=== PATIENT | male | born 1980 ===

== ENCOUNTER 2020-08-10 17:11 | Outpatient (REF) | payer OTHER, SELFPAY | END 2020-08-10 17:12 | disposition home or self-care (01) | LOC: HO.LAB 17:11 | PROVIDERS: Visit Provider Internal Medicine | DX: Z20.828 Contact with and (suspected) exposure to other viral communicable diseases (principal) | CPT/HCPCS: C9803; U0003 ==

== ENCOUNTER 2020-09-27 12:15 | Outpatient (REF) | payer OTHER, SELFPAY | END 2020-09-27 12:16 | disposition home or self-care (01) | LOC: HO.LAB 12:15 | PROVIDERS: PCP Internal Medicine Geriatric Medicine; Visit Provider Internal Medicine | DX: Z20.822 Contact with and (suspected) exposure to COVID-19 (principal) | CPT/HCPCS: 36415; C9803; U0003; U0005 ==

== ENCOUNTER → 2023-12-02 10:06 | Outpatient (REF) | payer OTHER, SELFPAY ==
--- NOTE | 2023-12-02 10:14 | HM_ITS ---
* Total monitoring time 2 days. * Underlying rhythm is sinus with an average rate of 67/Min. * Very rare supraventricular and ventricular ectopy. * No significant pauses or AV blocks. * No patient markers or diary events. MTDD
== END ==
LOC: HO.CARD 10:06
PROVIDERS: Visit Provider Nurse Practitioner Primary Care
DX: R00.2 Palpitations (principal)
CPT/HCPCS: 93225

== ENCOUNTER → 2023-12-02 10:14 | Outpatient (BNV) | payer OTHER, SELFPAY | PROVIDERS: Visit Provider Internal Medicine | DX: R00.1 Bradycardia, unspecified (principal) | CPT/HCPCS: 93227 ==

== ENCOUNTER 2023-12-04 10:30 | Outpatient (REF) | payer OTHER, SELFPAY ==
--- NOTE | ~2023-12-04 | XR_ITS ---
EXAMINATION: XR KNEE, RIGHT CLINICAL INFORMATION: Chronic pain of right knee for one year. COMPARISON: None available. TECHNIQUE: AP and 2 lateral views of the right knee. FINDINGS: Dmbttgmn-ee-prnrx joint effusion. Minimal narrowing of the lateral compartment with tiny marginal osteophytes. Bone mineralization is normal. XR/XR knee RT 2V IMPRESSION: Oqsrakue-qn-gvotk joint effusion. Minimal degenerative changes.
== END 2023-12-04 10:31 | disposition home or self-care (01) ==
LOC: HO.HHCX 10:30
PROVIDERS: Visit Provider Nurse Practitioner Primary Care
DX: M25.561 Pain in right knee (principal); G89.29 Other chronic pain
CPT/HCPCS: 73560

== ENCOUNTER 2023-12-31 07:58 | Outpatient (AMB) | payer OTHER, SELFPAY ==
--- NOTE | 2023-12-31 08:01 | A.OFFVIS_ITS ---
Vital Signs 12/31/23 08:10 Height 5 ft 6 in Weight 176 lb BMI 28.4 Intake Visit Reasons: effusion of right knee. Intake Note: Vin is a 43 year old male who presents as new patient with complaints of progressively worsening right knee pain and giving way. The patient describes his pain as sharp in nature. Most of the pain is along the medial aspect of his knee. The patient states that he did injure his right knee approximately 1 year ago. Since that time his symptoms have gotten worse. He has failed the last 6 weeks of conservative treatment. Has done physical therapy exercises which aggravated his pain. He has also tried Tylenol and Advil which gave him minimal relief. He states that his right knee will give out several times per day. 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[employer], Right hand dominant Physical Exam Vital Signs: BMI result Body Mass Index 28.4 Const Other: Well-nourished well-developed very friendly male awake alert and oriented x3 in no acute distress Extrem Other: Bilateral lower extremity examination shows good capillary refill, no skin lesions noted, normal sensation light touch Right knee examination shows a minimal effusion, minimal crepitus with range of motion, tenderness along his medial joint line, positive Chuck's test no instability Results Reviewed Results Reviewed: Standing full weight-bearing x-rays of the patient's right knee show minimal joint space narrowing, no acute bony abnormalities Assessment & Plan Assessment & Plan (1) Right knee pain: Code(s): M25.561 - Pain in right knee Category: Medical Plan Mr. Ugalde presents with right knee pain and mechanical symptoms most likely due to a tear of his medial. Thus, I will send the patient for an MRI of his right knee for further evaluation. I will see him back once the MRI is completed to findings treatment options. Feel free to call me at any time should questions regarding his orthopedic management arise. Thank you very much for asking me to see this very friendly gentleman. I spent 20 minutes in reviewing the patient's records and imaging studies, seeing the patient and documenting in the medical record. Orders: Orders MR knee RT wo con Today M25.561 - Pain in right knee Coding Level of Care Code New Pt Level 3 (55997) Diagnoses Right knee pain M25.561
[2023-12-31 08:10] VITALS: BMI 28.4
== END 2023-12-31 08:19 | disposition home or self-care (01) ==
PROVIDERS: PCP Internal Medicine Geriatric Medicine; Visit Provider Orthopaedic Surgery
DX: M25.561 Pain in right knee (principal)
CPT/HCPCS: 99203

== ENCOUNTER → 2023-12-31 07:58 | Outpatient (BNVA) | payer OTHER, SELFPAY | PROVIDERS: PCP Internal Medicine Geriatric Medicine; Visit Provider Orthopaedic Surgery | DX: M25.561 Pain in right knee (principal) | CPT/HCPCS: 99202 ==

== ENCOUNTER 2024-01-28 09:36 | Outpatient (AMB) | payer OTHER, SELFPAY ==
--- NOTE | 2024-01-28 09:36 | MHC.OFFVIS ---
Vital Signs 01/28/24 09:41 Height 5 ft 6 in Weight 176 lb BMI 28.4 Intake Visit Reasons: OV-effusion of right knee, MRI review Intake Note: Vin is a 43 year old male who presents today with complaints of intermittent discomfort in his right knee. Most of the discomfort is along medial and anterior aspects of his knee. He denies any locking or giving way. Has tried Tylenol and anti-inflammatory medicines which gave him mild relief. 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[employer], Right hand dominant Physical Exam Vital Signs: BMI result Body Mass Index 28.4 Const Other: Well-nourished well-developed very friendly male awake alert and oriented x3 in no acute distress Extrem Other: Bilateral lower extremity examination shows good capillary refill, no skin lesions noted, normal sensation light touch Right knee examination shows a minimal effusion, minimal crepitus with range of motion, no medial or lateral joint line tenderness, no instability Results Reviewed Results Reviewed: MRI of the patient's right knee shows minimal diffuse degenerative changes, no evidence of meniscus tearing Assessment & Plan Assessment & Plan (1) Right knee pain: Code(s): M25.561 - Pain in right knee Category: Medical Plan Mr. 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 I had a lengthy discussion with the patient regarding the treatment options. This point the patient's symptoms are tolerable to him. We will hold off on an injection. He will follow up with me on an as-needed basis should his symptoms worsen in any way. Feel free to call me at any time should questions regarding his orthopedic management arise. I spent 21 minutes in reviewing the patient's records and imaging studies, seeing the patient and documenting in the medical record. Coding Level of Care Code Est Pt Level 2 (06396) Diagnoses Right knee pain M25.561
[2024-01-28 09:41] VITALS: BMI 28.4
== END 2024-01-28 09:57 | disposition home or self-care (01) ==
PROVIDERS: PCP Internal Medicine Geriatric Medicine; Visit Provider Orthopaedic Surgery
DX: M25.561 Pain in right knee (principal)
CPT/HCPCS: 99213

== ENCOUNTER → 2024-01-28 09:36 | Outpatient (BNVA) | payer OTHER, SELFPAY | PROVIDERS: PCP Internal Medicine Geriatric Medicine; Visit Provider Orthopaedic Surgery | DX: M17.11 Unilateral primary osteoarthritis, right knee (principal); M67.51 Plica syndrome, right knee | CPT/HCPCS: 99212 ==

== ENCOUNTER 2024-06-12 14:10 | Outpatient (REF) | payer OTHER, SELFPAY ==
[2024-06-12 16:36] LABS: MANUAL DIFF FLAG NO
[2024-06-12 16:50] LABS: Basophils Percent Auto 0.4 % (0-2); Eosinophils Absolute Auto 0.1 X10*3/uL (0.0-0.4); Eosinophils Percent Auto 1.3 % (0-4); Hematocrit 47.1 % (42.0-52.0); Hemoglobin 16.8 g/dl (14.0-18.0); Imm Gran Abs Auto 0.01 X10*3/uL (0.00-0.03); Imm Gran Pct Auto 0.2 % (0.0-0.4); Lymphocytes Absolute Auto 1.5 X10*3/uL (1.2-4.9); Lymphocytes Percent Auto 30.7 % (20-40); Mean Corpuscular HGB Conc 35.7 g/dl (31.0-36.0); Mean Corpuscular Hemoglobin 32.9 pg (27.0-33.0); Mean Corpuscular Volume 92.4 fL (80.0-98.0); Mean Platelet Volume 11.2 fL (9.4-12.4); Monocytes Absolute Auto 0.4 X10*3/uL (0.1-1.2); Monocytes Percent Auto 8.2 % (2-11); Neutrophils Absolute Auto 2.8 x10*3/uL (2.0-8.3); Neutrophils Percent Auto 59.2 % (45-73); Platelet Count 193 X10*3/uL (160-400); Red Cell Distribution Width 11.9 % (11.0-16.0); White Blood Count 4.8 X10*3/uL (4.8-10.8)
[2024-06-12 16:55] LABS: Estimated Average Glucose 100 mg/dL; Hemoglobin A1C 141.2445 umol/L; Hemoglobin A1c % 5.1 % (<6.0); Total Hemoglobin (HGBA1C) 4362.6824 umol/L
[2024-06-12 17:04] LABS: Alanine Aminotransferase 29 U/L (0-40); Albumin Level 4.3 g/dL (3.5-5.0); Alkaline Phosphatase 116 U/L (39-117); Anion Gap 14 (12-20); Aspartate Amino Transferase 30 U/L (5-37); Bilirubin Total 1.1 mg/dL (0.0-1.0); Blood Urea Nitrogen 11 mg/dL (9-16); Calcium 9.7 mg/dL (8.4-10.2); Carbon Dioxide 22 mmol/L (22-29); Chloride 109 mmol/L (96-108); Cholesterol 128 mg/dL (<200); Estimated Glomerular Filt Rate > 60; Glucose Random 144 mg/dL (60-115); HDL Cholesterol 36 mg/dL (>40); LDL Cholesterol Calculated 78 mg/dL (<100); Potassium 3.9 mmol/L (3.3-5.1); Sodium 141 mmol/L (135-145); Total Protein 7.6 g/dL (6.5-8.0); Triglycerides 74 mg/dL (<150)
[2024-06-12 17:21] LABS: Vitamin B12 415 pg/mL (200-900)
== END 2024-06-12 14:11 | disposition home or self-care (01) ==
LOC: HO.HHCL 14:10
PROVIDERS: Visit Provider Nurse Practitioner Primary Care
DX: K76.0 Fatty (change of) liver, not elsewhere classified (principal); M79.605 Pain in left leg; M79.604 Pain in right leg; R00.2 Palpitations
CPT/HCPCS: 36415; 80053; 80061; 82607; 83036; 84443; 85025

== ENCOUNTER 2025-08-02 13:43 | Outpatient (REF) | payer OTHER, SELFPAY ==
[2025-08-02 16:01] LABS: MANUAL DIFF FLAG NO
[2025-08-02 16:07] LABS: Hematocrit 49.8 % (42.0-52.0); Hemoglobin 17.3 g/dl (14.0-18.0); Imm Gran Abs Auto 0.01 X10*3/uL (0.00-0.03); Imm Gran Pct Auto 0.2 % (0.0-0.4); Lymphocytes Absolute Auto 1.7 X10*3/uL (1.2-4.9); Mean Corpuscular HGB Conc 34.7 g/dl (31.0-36.0); Mean Corpuscular Hemoglobin 32.9 pg (27.0-33.0); Mean Corpuscular Volume 94.7 fL (80.0-98.0); NRBC Abs Auto 0.000 X10*3/uL (0.0-0.012); NRBC Pct Auto 0.0 /100WBC (0.0-0.2); Platelet Count 197 X10*3/uL (160-400); Red Blood Count 5.26 X10*6/uL (4.60-5.80); White Blood Count 5.9 X10*3/uL (4.8-10.8)
[2025-08-02 16:21] LABS: Alanine Aminotransferase 28 U/L (0-40); Albumin Level 4.5 g/dL (3.5-5.0); Alkaline Phosphatase 133 U/L (39-117); Anion Gap 10 (12-20); Aspartate Amino Transferase 34 U/L (5-37); Blood Urea Nitrogen 12 mg/dL (9-16); Calcium 9.3 mg/dL (8.4-10.2); Carbon Dioxide 26 mmol/L (22-29); Chloride 108 mmol/L (96-108); Cholesterol 132 mg/dL (<200); Estimated Glomerular Filt Rate > 60; HDL Cholesterol 33 mg/dL (>40); Potassium 4.1 mmol/L (3.3-5.1); Sodium 140 mmol/L (135-145); Total Protein 7.4 g/dL (6.5-8.0); Triglycerides 110 mg/dL (<150)
--- OUTSIDE RECORDS SUMMARY | 2025-08-02 17:08 | XMS_ITS | Clinical Summary ---
Author Organization [employer] Address [address] [facility] [address] [place] [address] Care Team Providers Care Color Straining Bag Washer Name Role Phone Marsha Almaraz Primary Care Provider [phone] Allergies No known active allergies Medications famotidine (Pepcid) 20 MG tabletIndicatio ns:Heartburn Take 1 tablet as needed up to BID for gastritis 60 tablet 1 5 Active Diclofenac Sodium (Voltaren) 1 % gelIndications: Chronic pain of right knee,Effusion of right knee Apply up to 4x/d to affected joint(s) for pain/swelling 100 g 2 08/02/2025 1:45 PM EST 5 Active Active Problems Problem Noted Date Diagnosed Date Effusion of right knee 12/10/2023 Overview (12/10/2023): On XR 11/2023. Referred to ortho 12/10/23. Migraine 04/08/2018 Overweight 04/08/2018 Reduced libido 04/08/2018 Episodic cluster headache 10/19/2016 Benign paroxysmal positional vertigo 06/22/2016 Encounters Date Type Department Care Team Description 07/27/2025 9:45 AM EST Office Visit [facility] [address] [place] [address] Marsha Almaraz ANP Healthcare maintenance (Primary Dx); Elevated fasting glucose; Dietary counseling; Exercise counseling; Chronic pain of right knee; Effusion of right knee; Decreased libido; Acute right-sided low back pain without sciatica 07/27/2025 Travel 07/26/2025 Telephone [facility] [address] [place] [address] Marsha Almaraz ANP chart prep 07/16/2025 Patient Outreach [facility] [place] [address] Marsha Almaraz ANP Pre-visit Planning ([facility] screening was completed on 05/18/2025) 06/23/2025 Telephone [facility] [place] [address] Marsha Almaraz ANP Nurse Triage 05/18/2025 9:30 AM EDT Office Visit [address] [address] Marsha Almaraz ANP Chronic pain of right knee (Primary Dx); Dizziness; Heartburn 05/18/2025 Travel 05/17/[address] [address] Marsha Almaraz ANP chart prep 05/13/[address] [address] Marsha Almaraz ANP dec recall from Last 3 Months Immunizations Immunization Administration Dates Next Due Influenza injectable quadriv alent IIV4 with preservative 04/29/2019,06/22/2016 Moderna Covid-19 Vaccine 12+ 08/15/2021,12/22/19 21,11/23/2020 Tdap 04/29/2019 Social History Tobacco Use Types Packs/Day Years Used Date Smoking Tobacco: Never Passive Smoke Exposure: Never Smokeless Tobacco: Never Tobacco Cessation:Counseling Given: Not Answered Alcohol Use Standard Drinks/Week Comments Never 0 (1 standard drink = 0.6 oz pur e alcohol) Depression Answer Date Recorded Patient Health Questionnaire-9 Score 0 07/27/2025 Patient Health Questionnaire-9 Score 0 07/27/2025 Last PHQ-9: Questionnaire Data Not on file 1 09/27/2024 Housing Stability Answer Date Recorded What is your housing situation today? I have lois godinez 05/18/[address] you li ve. Do you have problems with any of the following? None of the above 05/18/2025 Food Insecurity Answer Date Recorded Within the past 12 months, y ou worried that your food would run out before you got money to buy more: Never True 05/18/2025 Within the past 12 months,th e food you bought just didn't last and you didn't have enough money to get more: Never True 02/2025 Transportation Answer Date Recorded In the past 12 months, has l ack of transportation kept you from medical appts, meetings, work or from getting things needed for daily living? No 05/18/2025 Utilities Answer Date Recorded In the past 12 months, has t he electric, gas, oil or water company threatened to shut off services in your home? No 05/18/2025 Depression Answer Date Recorded Patient Health Questionnaire-2 Score 0 07/27/2025 Internet Access Answer Date Recorded Internet Access Q1 Yes 07/15/2024 Internet Access Q2 Not on file 07/15/2024 Sex and Gender Information Value Date Recorded Sex Assigned at Male 06/11/2022 10:16 AM EDT Legal Sex Male 10:16 AM EDT Gender Identity Male 06/11/2022 10:16 AM EDT Sexual Orientation Straight 06/11/2022 10 :16 AM EDT Last Filed Vital Signs Vital Sign Reading Time Taken Comments Blood Pressure 110/72 07/27/2025 9:55 AM EST Pulse 65 07/27/2025 9:55 AM EST Temperature 37.2 C (98.9 F) 07/27/2025 9:55 AM EST Respiratory Rate 20 07/27/2025 9:55 AM EST Oxygen Saturation 98% 07/27/2025 9:55 AM EST Inhaled Oxygen Concentration - - Weight 83.7 kg (184 lb 9.6 oz) 07/27/2025 9:55 A M EST Height 162.6 cm (5' 4 ) 07/27/2025 9:55 AM EST Body Mass Index 31.69 07/27/2025 9:55 AM EST Plan of Treatment Upcoming Encounters Date Type Department Care Team (Late st Contact Info) Description 10/05/2025 1:15 PM EST Office Visit [facility] [address] [place] [address] Marsha Almaraz ANP [address] [place] [address] Health Maintenance Due Date Last Done Comments HIV Screening 1981 Family Planning (PISQ) 1996 HPV Vaccines (1 - Male 3-dos e series) 1996 Hepatitis C Screening 1999 Hepatitis B Vaccines (1 of 3 - 19+ 3-dose series) 2000 Dental Oral Exam 01/17/2023 07/18/2022 Dental Prophylaxis 01/17/2023 07/18/2022 Dental X-Ray: Bitewings 07/19/2023 07/18/2022 Dental X-Ray: Full Mouth 07/19/2025 07/18/2022 Influenza Vaccine (#1) 2026 9, 06/22/2016 Postponed from 04/12/2025 (Patient Refused) Disability Screening 05/18/2026 05/18/2025 SDOH Screening 05/18/2026 05/18/2025 Alcohol/Substance Use Screening 07/27/2026 07/27/2025 COVID-19 Vaccine (4 - 2024-2 6 season) 2026 08/15/2021, 12/21/2020, 11/23/2020 Postponed from 04/12/2025 (Patient Refused) Depression Screening 07/27/2026 07/27/2025, 07/27/2025 Tobacco Screening 07/27/2026 07/27/2025 DTaP/Tdap/Td Vaccines (2 - T d or Tdap) 04/29/2029 04/29/2019 Lipid Panel 08/02/2030 08/02/2025, 06/12/2024 Zoster Vaccines (1 of 2) 2031 RSV Patients and Patients Aged 60 years or older (1 - 1-dose 75+ series) 2056 HIB Vaccines Aged Out No longer eligi ble based on patient's age to complete this topic Hepatitis A Vaccines Aged Out No long er eligible based on patient's age to complete this topic IPV Vaccines Aged Out No longer eligi ble based on patient's age to complete this topic Meningococcal B Vaccine Aged Out No l onger eligible based on patient's age to complete this topic Meningococcal Vaccine Aged Out No radha kaushik eligible based on patient's age to complete this topic Pneumococcal Vaccine: Pediatrics (0 to 5 Years) and At-Risk Patients (6 to 49) Years Aged Out No longer eligible b ased on patient's age to complete this topic RSV under 20 months Aged Out No longe r eligible based on patient's age to complete this topic Rotavirus Vaccines Aged Out No longer eligible based on patient's age to complete this topic Procedures Procedure Name Priority Date/Time Associated Diagnosis Comments CBC WITH AUTO DIFFERENTIAL Routine 08/02/2025 1:47 PM EST Healthcare maintenance Decreased libido COMPREHENSIVE METABOLIC PANEL Routine 08/02/2025 1:47 PM EST Elevated fasting glucose HEMOGLOBIN A1C Routine 08/02/2025 1:47 PM EST Elevated fasting glucose LIPID PANEL, STANDARD Routine 08/02/2025 1:47 PM EST Healthcare maintenance AMB REFERRAL TO PHYSICAL THERAPY Routine 06/04/2025 Chronic pain of right knee PROPHYLAXIS - ADULT Routine 07/18/2022 8 :00 AM EST INTRAORAL - COMPLETE SERIES OF RADIOGRAPHIC IMAGES Routine 07/18/2022 8:00 AM EST COMPREHENSIVE ORAL EVALUATION - NEW OR ESTABLISHED PATIENT Routine 07/18/2022 8:00 AM EST from Last 3 Months or Most Recently Relevant to Health Maintenance Results * CBC auto differential (08/02/2025 1:47 PM EST) White Blood Count 5.9 4.8 - 10.8 X10*3/uL [facility] Red Blood Count 5.26 4.60 - 5.80 X10*6/uL [facility] Hemoglobin 17.3 14.0 - 18.0 g/dl [facility] Hematocrit 49.8 42.0 - 52.0 % [facility] Mean Corpuscular Volume 94.7 80.0 - 98.0 fL [facility] Mean Corpuscular Hemoglobin 32.9 27.0 - 33.0 pg [facility] Mean Corpuscular HGB Conc 34.7 31.0 - 36.0 g/dl [facility] Red Cell Distribution Width 11.7 11.0 - 16.0 % [facility] Platelet Count 197 160 - 400 X10*3/uL [facility] Mean Platelet Volume 11.3 9.4 - 12.4 fL [facility] Neutrophils Percent Auto 57.2 45 - 73 % [facility] Imm Gran Pct Auto 0.2 0.0 - 0.4 % [facility] Lymphocytes Percent Auto 29.3 20 - 40 % [facility] Monocytes Percent Auto 10.4 2 - 11 % [facility] Eosinophils Percent Auto 2.2 0 - 4 % [facility] Basophils Percent Auto 0.7 0 - 2 % [facility] NRBC Pct Auto 0.0 0.0 - 0.2 /100WBC [facility] Neutrophils Absolute Auto 3.4 2.0 - 8.3 x10*3/uL [facility] Imm Gran Abs Auto 0.01 0.00 - 0.03 X10*3/uL [facility] Lymphocytes Absolute Auto 1.7 1.2 - 4.9 X10*3/uL [facility] Monocytes Absolute Auto 0.6 0.1 - 1.2 X10*3/uL [facility] Eosinophils Absolute Auto 0.1 0.0 - 0.4 X10*3/uL [facility] Basophils Absolute Auto 0.0 0.0 - 0.2 X10*3/uL [facility] NRBC Abs Auto 0.000 0.0 - 0.012 X10*3/uL [facility] Blood Venous blood specimen / Unknown 08/02/2025 1:47 PM EST 08/02/2025 3:57 PM EST [facility] LAB BLOOD ORDERABLES Final Resul t [facility] [address] [place] [address] [phone] * Hemoglobin A1c (08/02/2025 1:47 PM EST) Hemoglobin A1c 5.3 <6.0 % [facility] Comment:Hemoglobin A1C Refer ence Range Adults: 4.8 - 6.0 % Non diabetic: < 6.0 % Goal: < 7.0 %Additional Action Suggested: > 8.0 %Note: Hemoglobin A1c results are invalid for patients with abnormal amounts of HbF. Blood transfusions may impact the HbA1c concentration in the patient sample. Estimated Average Glucose 105 mg/dL [facility] Comment:eAG = Estimated ave rage glucose which is %A1C expressed asaverage glucose, using the formula of the [id number] Glucose study (ADAG), Diabetes Care, Vol.31,#8,Mar. 2007 Blood Venous blood specimen / Unknown 08/02/2025 1:47 PM EST 08/02/2025 3:57 PM EST Marsha Almaraz ANP LAB BLOOD ORDERABLES Final Resul t Performing Organization Address [facility]/State/ZIP Co de Phone Number [facility] [address] [place] [address] [phone] * (ABNORMAL) Lipid Panel, Standard (08/02/2025 1:47 PM EST) Triglycerides 110 <150 mg/dL [facility] Comment:Desirable Triglyceri de: less than 150 mg/dLBorderline High Triglyceride 150-199 mg/dLHigh Triglyceride: 200-499 mg/dLVery High Triglyceride: greater than or equal to 5OO mg/dL Cholesterol 132 <200 mg/dL [facility] Comment:Desirable Cholestero l: less than 200 mg/dLBorderline High Cholesterol: 200-239 mg/dLHigh Cholesterol: greater than 239 mg/dL LDL Cholesterol Calculated 77 <100 mg/dL [facility] Comment:Desirable LDL: less than 100 mg/dLNear Optimal/Above Optimal LDL: 110- 129 mg/dLBorderline High LDL: 130-159 mg/dLHigh LDL: 160-189 mg/dLVery High LDL: greater than or equal to 190 mg/dL HDL Cholesterol 33(L) >40 mg/dL [facility] Comment:Desirable HDL: great er than 40 mg/dL Note: This HDL assay may give artificially low results in patients with liver disease. Blood Venous blood specimen / Unknown 08/02/2025 1:47 PM EST 08/02/2025 3:57 PM EST us Marsha Almaraz ANP LAB BLOOD ORDERABLES Final Resul t Performing Organization Address City/[facility]/ZIP Co de Phone Number [facility] [address] [place] [address] [phone] * (ABNORMAL) Comprehensive Metabolic Panel (08/02/2025 1:47 PM EST) Sodium 140 135 - 145 mmol/L [facility] Potassium 4.1 3.3 - 5.1 mmol/L [facility] Chloride 108 96 - 108 mmol/L [facility] Carbon Dioxide 26 22 - 29 mmol/L [facility] Anion Gap 10(L) 12 - 20 [facility] Urea Nitrogen (BUN) 12 9 - 16 mg/dL [facility] Creatinine, Serum 1.02 0.5 - 1.4 mg/dL [facility] Estimated Glomerular Filt Rate >60 [facility] Comment:Chronic Kidney Disea se: Estimated GFR < 60 mL/min/[id number] Kidney Disease: Estimated GFR < 15 mL/min/1.73m2 Glucose 103 60 - 115 mg/dL [facility] Calcium 9.3 8.4 - 10.2 mg/dL [facility] Bilirubin, Total 0.8 0.0 - 1.0 mg/dL [facility] Aspartate Amino Transferase 34 5 - 37 U/L [facility] Alanine Aminotransferase 28 0 - 40 U/L [facility] Total Protein 7.4 6.5 - 8.0 g/dL [facility] Albumin Level 4.5 3.5 - 5.0 g/dL [facility] Alkaline Phosphatase 133(H) 39 - 117 U/L [facility] Blood Venous blood specimen / Unknown 08/02/2025 1:47 PM EST 08/02/2025 3:57 PM EST [facility] LAB BLOOD ORDERABLES Final Resul t Performing Organization Address [facility]/ZIP Co de Phone Number [facility] [address] [place] [address] [phone] * Referral to Physical Therapy (06/04/2025) Marsha DARNELL OUTPATIENT REFERRAL ORDERABLES F inal Result from Last 3 Months Insurance FOR[facility]LY [facility] - HSN FULL (MEDICAID) Care Teams Color Straining Bag Washer Relationship Specialty Start Date End Date Marsha Almaraz ANP [address] [place] [phone] PCP - General Family Medicine 08/09/23
--- OUTSIDE RECORDS SUMMARY | 2025-08-02 17:08 | XMS_ITS | Encounter Summary ---
Author Organization [employer] Address [address] [facility] [address] [place] [address] Care Team Providers Care Technical Fellow Name Role Phone Marsha Almaraz Primary Care Provider [phone] Reason for Visit * Reason Onset Date Comments Call Back Request 09/25/2023 Encounter Details Date Type Department Care Team (Late st Contact Info) Description 09/25/2023 Telephone [facility] [address] [place] [phone] Marsha Almaraz ANP [address] [place] [address] Call Back Request Social History Tobacco Use Types Packs/Day Years Used Date Smoking Tobacco: Never Smokeless Tobacco: Never Alcohol Use Standard Drinks/Week Comments Never 0 (1 standard drink = 0.6 oz pur e alcohol) Sex and Gender Information Value Date Recorded Sex Assigned at Male 06/11/2022 10:16 AM EDT Legal Sex Male 10:16 AM EDT Gender Identity Male 06/11/2022 10:16 AM EDT Sexual Orientation Straight 06/11/2022 10 :16 AM EDT documented as of this encounter Miscellaneous Notes * Telephone Encounter - Maximiliano Harris - 09/25/2023 1:22 PM EST Tc from patient returning call to the team of the PCP and is requesting a call back documented in this encounter Plan of Treatment Upcoming Encounters Date Type Department Care Team (Late st Contact Info) Description 10/05/2025 1:15 PM EST Office Visit [facility] [address] [place] [address], [place] [address] Marsha Almaraz ANP [address] [place] [address] documented as of this encounter Visit Diagnoses Not on filedocumented in this encounter Care Teams Technical Fellow Relationship Specialty Start Date End Date Marsha Almaraz ANP [address] [place] [address] PCP - General Family Medicine 08/09/23 documented as of this encounter
[2025-08-03 04:07] LABS: ~HepC Num1 0.09 S/CO (0.00-0.79); ~Hepatitis C Antibody Nonreactive (Nonreactive)
== END 2025-08-02 13:44 | disposition home or self-care (01) ==
LOC: HO.HHCL 13:43
PROVIDERS: PCP Nurse Practitioner Primary Care; Visit Provider Nurse Practitioner Primary Care
DX: Z00.00 Encounter for general adult medical examination without abnormal findings (principal); R68.82 Decreased libido; R73.01 Impaired fasting glucose
CPT/HCPCS: 36415; 80053; 80061; 83036; 84402; 84403; 85025; 86803